=== PATIENT | male | born 1960 | race Caucasian/White ===

== ENCOUNTER 2016-10-17 21:51 | Emergency (ER) | payer SELFPAY ==
[2016-10-17 21:55] VITALS: BP 152/76; PULSE 65; TEMP 97.5; BMI 22.7
--- NOTE | 2016-10-17 22:30 | PDOC ---
History of Present Illness - General Chief Complaint: Abscess Boil Stated Complaint: CYST Time Seen by Provider: 10/17/16 22:11 History Source: Patient, Spouse Exam Limitations: No Limitations - History of Present Illness Initial Comments: CHIEF COMPLAINT: 55 y/o afebrile male with PMH HTN c/o cyst to back. HISTORY OF PRESENT ILLNESS: The patient states he developed a cyst on his back 3 days ago. His has been applying bacitracin and the abscess opened on its own today and is draining pus. He states he also has another one forming on his neck. He denies f/c, n/v/d, streaking. Vital signs on arrival are within normal limits. REVIEW OF SYSTEMS: GENERAL/CONSTITUTIONAL: No fever/chills. No weakness. No weight change. MUSCULOSKELETAL: No joint or muscle swelling or pain. No neck or back pain. SKIN: +abscess to back and neck. NEUROLOGIC: No headache, vertigo, loss of consciousness, or loss of sensation. PHYSICAL EXAM: GENERAL: The patient is awake, alert, and fully oriented, in no acute distress. He is well appearing and ambulatory. HEAD: Normal with no signs of trauma. EYES: Pupils equal, round and reactive to light, extraocular movements intact, sclera anicteric, conjunctiva clear. EXTREMITIES: Normal range of motion, no edema. NEUROLOGICAL: Normal speech, normal gait. SKIN: Abscess to right thoracic back that is approximately 2cm in vertical length. Gentle pressure applied expressed approximately 2mL of purulent discharge. No surrounding erythema or streaking. 2cm in diameter, non fluctuant cyst like structure in right upper shoulder/neck area that is non tender to palpation. Past History - Past Medical History Allergies/Adverse Reactions: Allergies Allergy/AdvReac Type Severity Reaction Status Date / Time No Known Allergies Allergy Verified 10/17/16 21:52 Home Medications: Ambulatory Orders Aspirin [ASA -] 325 mg PO DAILY 11/28/13 Escitalopram Oxalate [Lexapro -] 10 mg PO DAILY 11/28/13 Losartan Potassium [Cozaar] 25 mg PO DAILY 11/28/13 Oxycodone HCl/Acetaminophen [Percocet 5-325 mg Tablet -] 1 tab PO Q4H #20 tablet 11/28/13 Zolpidem Tartrate [Ambien] 5 mg PO HS 11/28/13 Colesevelam HCl [Welchol] 3 tab PO BID 01/24/14 Ibuprofen [Motrin -] 600 mg PO TID PRN 01/24/14 Metoprolol Tartrate 50 mg PO BID 01/24/14 Topiramate 50 mg PO HS 01/24/14 Tramadol HCl 50 mg PO Q6H PRN 01/24/14 Sulfamethoxazole/Trimethoprim [Bactrim Ds -] 1 tab PO BID #14 tablet 10/17/16 Cardiac Disorders: Yes CVA: Yes (left side weakness) HTN: Yes Hypercholesterolemia: Yes - Immunization History Immunization Up to Date: Yes - Psycho/Social/Smoking Cessation Hx Anxiety: No Suicidal Ideation: No Smoking History: Never smoked Have you smoked in the past 12 months: No If you are a former smoker, when did you quit?: 27 years ago Information on smoking cessation initiated: No Hx Alcohol Use: No Drug/Substance Use Hx: No Substance Use Type: None Hx Substance Use Treatment: No *Physical Exam - Vital Signs Last Vital Signs Temp Pulse Resp BP Pulse Ox 97.5 F L 65 18 152/76 100 10/17/16 21:53 10/17/16 21:53 10/17/16 21:53 10/17/16 21:53 10/17/16 21:53 Medical Decision Making - Medical Decision Making A/P: 55 y/o male with open abscess to right back. Sent wound culture. Will discharge to home with rx for bactrim. Suggested he apply hot compresses 3 times per day and keep loosely covered. INstructed him to f/u with his doctor on Wednesday and return to the ER with any worsening or concerning symptoms. The patient verbalizes understanding of all instructions, has no further questions and is awaiting discharge. *DC/Admit/Observation/Transfer Diagnosis at time of Disposition: Abscess - Discharge Dispostion Disposition: HOME Condition at time of disposition: Good - Patient Instructions Printed Discharge Instructions: DI for Skin Abscess Additional Instructions: Discharge Instructions: -A prescription for antibiotics was sent to your pharmacy; please take as prescribed -Apply hot compresses to the affected area 3 times per day -Keep wound loosely covered -Follow up with your doctor next week -Return to the ER with any worsening or concerning symptoms. Instrucciones de daryl: -Emmy receta de antibiticos fue enviada a murray farmacia; Por favor tome jagruti prescrito -Aplicar compresas calientes al zain afectada 3 veces al da -Mantenga la herida suelta -Siga con murray mdico la prxima semana -Vuelva a la [facility] con cualquier empeoramiento o sntomas relacionados. Print Language: IRISH
== END 2016-10-17 22:52 | disposition home or self-care (01) ==
LOC: JERFT 21:51
DX: L02.212 Cutaneous abscess of back [any part, except buttock and flank] (principal); I10 Essential (primary) hypertension; E78.00 Pure hypercholesterolemia, unspecified; I69.854 Hemiplegia and hemiparesis following other cerebrovascular disease affecting left non-dominant side
CPT/HCPCS: 87070; 87186; 87205; 99281-25

== ENCOUNTER 2016-12-15 19:21 | Emergency (ER) | payer OTHER ==
[2016-12-15 19:36] VITALS: BP 138/77; PULSE 87; TEMP 98.9; BMI 32.8
[2016-12-15] MEDS ORDERED: TETRACAINE 0.5% OPHTH SOLN 2 ML BOTTLE ONE (19:58)
[2016-12-15] MEDS ORDERED: TETRACAINE 0.5% HCL 0.6ML DROPPER.BOTTLE OD ONE (20:01)
--- NOTE | 2016-12-15 20:07 | PDOC ---
History of Present Illness - General Chief Complaint: Eye Problem Stated Complaint: EYE INJURY Time Seen by Provider: 12/15/16 19:51 History Source: Patient Exam Limitations: No Limitations - History of Present Illness Initial Comments: 12/15/16 20:02 55 yr male with c/o right eye vision loss after looking at solar eclipse yesterday. Pt states he sees spots. Pt had history of laser eye treatment years ago. Pt wears glasses to read at baseline. pt denies pain to the eye. Timing/Duration: 24 hours Past History - Past Medical History Allergies/Adverse Reactions: Allergies Allergy/AdvReac Type Severity Reaction Status Date / Time No Known Allergies Allergy Verified 12/15/16 19:33 Home Medications: Ambulatory Orders Escitalopram Oxalate [Lexapro -] 10 mg PO DAILY 11/28/13 Losartan Potassium [Cozaar] 25 mg PO DAILY 11/28/13 Zolpidem Tartrate [Ambien] 5 mg PO HS 11/28/13 Colesevelam HCl [Welchol] 3 tab PO BID 01/24/14 Ibuprofen [Motrin -] 600 mg PO TID PRN 01/24/14 Metoprolol Tartrate 50 mg PO BID 01/24/14 Topiramate 50 mg PO HS 01/24/14 Aspirin [ASA -] 81 mg PO DAILY 12/15/16 Prednisolone 1% Ophthalmic [Pred Forte 1% -] 1 ml OD QID #1 bottle 12/15/16 Cardiac Disorders: Yes CVA: Yes (left side weakness) HTN: Yes Hypercholesterolemia: Yes Other medical history: laser eye treatment years ago - Immunization History Immunization Up to Date: Yes - Psycho/Social/Smoking Cessation Hx Anxiety: No Suicidal Ideation: No Smoking History: Never smoked Have you smoked in the past 12 months: No If you are a former smoker, when did you quit?: 27 years ago Information on smoking cessation initiated: No Hx Alcohol Use: No Drug/Substance Use Hx: No Substance Use Type: None Hx Substance Use Treatment: No Review of Systems - Review of Systems Able to Perform ROS?: Yes Is the patient limited Welsh proficient: No Constitutional: No: Symptoms Reported HEENTM: Yes: Symptoms Reported, See HPI Respiratory: No: Symptoms reported Cardiac (ROS): No: Symptoms Reported ABD/GI: No: Symptoms Reported : No: Symptoms Reported Musculoskeletal: No: Symptoms Reported Integumentary: No: Symptoms Reported Neurological: No: Symptoms reported *Physical Exam - Vital Signs Last Vital Signs Temp Pulse Resp BP Pulse Ox 98.9 F 87 20 138/77 97 12/15/16 19:34 12/15/16 19:34 12/15/16 19:34 12/15/16 19:34 12/15/16 19:34 - Physical Exam General Appearance: Yes: Nourished, Appropriately Dressed HEENT: positive: EOMI, DYLAN, Normal ENT Inspection, TMs Normal, Pharynx Normal, Other (neg redness to conjunctiva, neg eye discharge, BHAVYA EOMI bilaterally) Procedures - Eye Procedure Alcaine Drops Administered: Yes (right eye 2 drops ) Progress: 12/15/16 20:08 neg fluroscein uptake , neg fb ED Treatment Course - Consult/PCP Time Called: 20:00 Case discussed with consulting physician: Marin Cartwright Medical Decision Making - Medical Decision Making 12/15/16 20:08 cc: right eye vision loss after looking at the solar eclipse yesterday , sees spots and dark from right eye no tearing or pain visual acuity is 20/30 left eye 20/400 right eye (discussed with ) 12/15/16 20:17 case discussed with the electronic warfare specialist opthomologist suggested pt follow with retina specialist at [phone] and to prescribe prednisone eye drops 4 times a day discussed with pt and his who agree with plan of care all questions asked and answered *DC/Admit/Observation/Transfer Diagnosis at time of Disposition: Burn of eye region Qualifiers: Encounter type: initial encounter Laterality: right Qualified Code(s): T26.41XA - Burn of right eye and adnexa, part unspecified, initial encounter - Discharge Dispostion Condition at time of disposition: Good - Prescriptions Prescriptions: Prednisolone 1% Ophthalmic [Pred Forte 1% -] 1 ml OD QID #1 bottle - Referrals Referrals: Jerson Fierro [Primary Care Provider] - - Patient Instructions Additional Instructions: follow with the retinal specialist Dr.Joeseph Singh [phone] call tomorrow to make appointment or call your own opthomologist for follow up use the steroid eye drops as directed protect eyes with sunglasses
== END 2016-12-15 20:21 | disposition home or self-care (01) ==
LOC: JERFT 19:21
DX: T26.31XA Burns of other specified parts of right eye and adnexa, initial encounter (principal); X32.XXXA Exposure to sunlight, initial encounter; Y93.89 Activity, other specified; Y92.89 Other specified places as the place of occurrence of the external cause
CPT/HCPCS: 99281-25

== ENCOUNTER 2017-05-23 09:31 | Emergency (ER) | payer OTHER ==
[2017-05-23 09:40] VITALS: BP 147/89; PULSE 90; TEMP 98.5; BMI 33.5
--- NOTE | 2017-05-23 09:59 | PDOC ---
History of Present Illness - General Chief Complaint: Respiratory Stated Complaint: COUGH History Source: Patient Exam Limitations: No Limitations - History of Present Illness Initial Comments: 05/23/17 10:46 This 56-year-old male presents here with not feeling well. He has no fever, no cough or upper respiratory symptoms however he didn't bring his daughter in who was found to be positive for flu. At this time is requesting a influenza swab. Past History - Past History Allergies/Adverse Reactions: Allergies No Known Allergies Allergy (Verified 05/23/17 09:40) Home Medications: Ambulatory Orders Escitalopram Oxalate [Lexapro -] 10 mg PO DAILY 11/28/13 Losartan Potassium [Cozaar] 25 mg PO DAILY 11/28/13 Zolpidem Tartrate [Ambien] 5 mg PO HS 11/28/13 Colesevelam HCl [Welchol] 3 tab PO BID 01/24/14 Ibuprofen [Motrin -] 600 mg PO TID PRN 01/24/14 Metoprolol Tartrate 50 mg PO BID 01/24/14 Topiramate 50 mg PO HS 01/24/14 Aspirin [ASA -] 81 mg PO DAILY 12/15/16 Prednisolone 1% Ophthalmic [Pred Forte 1% -] 1 ml OD QID #1 bottle 12/15/16 Oseltamivir Phosphate [Tamiflu -] 75 mg PO BID #10 capsule 05/23/17 Immunization Status Up to Date: Yes - Social History Smoking Status: Never smoked Review of Systems - Review of Systems Able to Perform ROS?: Yes Comments:: 05/23/17 10:46 General statement: Hematology: neg history of bleeding/blood thinners Skin: Neg for lesions, rash, bruising. HEENT: Neg symptoms Respiratory: Neg SOB or difficulty in breathing Cardiac: Neg chest pain GI: Neg pain, n/v : Neg problems on voiding MS: Neg for joint pain/stiffness, no edema Neuro: Neg for LOC, weakness, Endocrine: Neg for excess thirst/hunger, cold/heat intolerance, excess sweating Allergies: Neg for allergies *Physical Exam - Vital Signs Last Vital Signs Temp Pulse Resp BP Pulse Ox 98.5 F 90 18 147/89 99 05/23/17 09:37 05/23/17 09:37 05/23/17 09:37 05/23/17 09:37 05/23/17 09:37 - Physical Exam Comments: 05/23/17 10:47 General Appearance: This well appearing 56-year-old male V/S: hemodynamically stable, afebrile Skin: WNL of pt's skin color, no signs of pallor, mottling, cyanosis Head:symmetrical Eyes: EOM's intact, PERRLA Ears: denies pain Nose: patent Throat: lips, teeth, gums, tongue, buccal mucos pink and moist Lungs: Chest symmetry equal. Cap refill <3 seconds. Lung sounds clear Cardiac: PMI at R 4MCL space, pos S1 and S2, regular rate. Abdomen: Soft, round, nontender : Not observed Muscularskeletal: Gait steady, ambulated in to ER, no edema +PMS Neuro: AAOx3, cognitively intact, speech clear and appropriate. Medical Decision Making - Medical Decision Making 05/23/17 10:47 This 56-year-old man is presented to the emergency room with complaints of feeling generally ill and his daughter is also. At this time he had a flu swab which was negative but he is going to be prescribed Tamiflu since his daughter is positive. *DC/Admit/Observation/Transfer Diagnosis at time of Disposition: Influenza - Discharge Dispostion Disposition: HOME Condition at time of disposition: Stable Admit: No - Prescriptions Prescriptions: Oseltamivir Phosphate [Tamiflu -] 75 mg PO BID #10 capsule - Referrals Referrals: Jerson Fierro [Primary Care Provider] - - Patient Instructions Printed Discharge Instructions: Influenza Additional Instructions: Discharge instructions 1. Please follow up with your primary physician within the next few days and explain that you have been seen here in the Emergency Room. 2. If you experience any worsening of symptoms, please return to the ER 3. Rest, avoid contact with others until fever free 24 hours. 4. Drink plenty of water and take tamiflu as prescribed. - Post Discharge Activity Forms/Work/School Notes: Back to Work
== END 2017-05-23 10:47 | disposition home or self-care (01) ==
LOC: JERFT 09:31
DX: J09.X2 Influenza due to identified novel influenza A virus with other respiratory manifestations (principal)
CPT/HCPCS: 87804; 99281-25